=== PATIENT | female | born 1955 | race Caucasian/White ===

== ENCOUNTER 2020-06-07 13:09 | Outpatient (CLI) | payer MEDICARE, OTHER, SELFPAY | END 2020-06-07 13:10 | disposition home or self-care (01) | PROVIDERS: PCP Family Medicine; Visit Provider Surgery | DX: K40.30 Unilateral inguinal hernia, with obstruction, without gangrene, not specified as recurrent (principal); Z01.818 Encounter for other preprocedural examination | CPT/HCPCS: 36415; 86850; 86900; 86901 ==

== ENCOUNTER 2020-06-09 02:15 | Outpatient (CLI) | payer MEDICARE, OTHER, SELFPAY ==
[2020-06-09 19:52] LABS: SARS-CoV-2 RNA PCR Negative
== END 2020-06-09 02:16 | disposition home or self-care (01) ==
LOC: ANHCOVIDDT 02:16
PROVIDERS: PCP Family Medicine; Visit Provider Surgery
DX: Z01.812 Encounter for preprocedural laboratory examination (principal); Z20.828 Contact with and (suspected) exposure to other viral communicable diseases
CPT/HCPCS: 87635; C9803; U0003

== ENCOUNTER 2020-06-12 00:58 | Day surgery (SDC) | payer MEDICARE, OTHER, SELFPAY ==
[2020-06-06 15:25] VITALS: BMI 21.8
[2020-06-12] VITALS (10 sets, daily range): BP systolic 134–192; BP diastolic 55–89; PULSE 56–80; RESP 12–16; TEMP 36.2–36.4; O2SAT 93–100
--- NOTE | 2020-06-12 07:24 | WPDANESEPPF ---
Anes - Initial Pre Proc Eval Procedure: Operation Date: 06/12/20 09:30 Proposed Procedures p Robotic Assisted Left Inguinal Hernia Repair With Mesh - Courtney Yeung MD Date/Time: 06/12/20 07:24 Surgeon: Courtney Yeung MD Pre Op Diagnosis: Left Incarcerated Inguinal Hernia Patient Data Age: 65 Gender: F Height: 1.61 m Weight: 56.8 kg Allergies Allergy/AdvReac Type Severity Reaction Status Date / Time latex AdvReac Intermediate Ulcers,rash Verified 06/12/20 07:59 Home Medications Medication Instructions Recorded Confirmed Type No Home Medications 06/05/20 06/12/20 History Patient hx anesthesia problems: none Family hx anesthesia problems: none [facility] Past Medical History Medical History (Updated 06/12/20 @ 08:44 by Misbah Delgado DO) History of pancreatitis 03/2020 - resolved Surgical History Surgical History H/O right inguinal hernia repair x2 Knee arthropathy Both knees Family History Family History Mother Hypertension Cancer Social History Social History Smoking status: Never smoker Alcohol intake: never Substance use: never Living arrangements: with family Additional occupation/education comments: House Gender identity (if verbalized by the patient): Female Spiritual care concerns: No Anes - Eval Final PreProcedure Day of Procedure 06/12/20 07:24 Patient weight: normal Heart: regular rate and rhythm Lungs: clear to auscultation and normal air movement Airway: Mallampati scale class II Neurological: alert and oriented Last oral intake: >/= 8 hours ASA classification: II Emergent: no Anesthetic plan: proceed Anesthesia type and monitoring: general ETT and standard monitoring Informed Consent: The patient's anesthetic plan and its attendant risks and benefits were discussed with the patient/family/POA. Questions were solicited and answers provided to the satisfaction of the patient/family/POA.
[2020-06-12] MEDS: ACETAMINOPHEN 500 MG TABLET 1000 MG PO (08:06)
[2020-06-12] MEDS: LACTATED RINGERS 1,000 ML 30 ML IV CONT ×2 (08:17→10:55)
[2020-06-12] MEDS: KETOROLAC 15 MG/ML VIAL (*BKC) IV PUSH (08:20)
--- NOTE | 2020-06-12 08:54 | WPDHPUPDATE1 ---
History and Physical Update Update Date/Time: 06/12/20 08:54 History and Physical has been reviewed, including an updated exam of the patient. There are NO changes in the patient's condition. Risks, benefits, and alternatives have been discussed and questions answered. Patient agrees to proceed with procedure.
[2020-06-12] MEDS: ceFAZolin 2 GM/D5W 50 ML 2 GM/50 ML BAG IVPB (09:27)
--- NOTE | 2020-06-12 10:45 | PM.PROC ---
Procedure Note - Detailed Date of procedure: 06/12/20 Pre-op diagnosis: Left Incarcerated Inguinal Hernia Post-op diagnosis: same Procedure performed: robotic assisted left inguinal hernia repair Description of procedure: Patient was brought into the operating room and placed in the supine position. After adequate induction of general anesthesia, the patient was prepped and draped in normal sterile fashion. A time-out was then done to verify the patient's identity, as well as the procedure being performed. Began by making a 8 mm incision in the supraumbilical region, a Veress needle was then placed into the peritoneal cavity. CO2 gas was then insufflated and after adequate pneumoperitoneum was achieved, the Veress needle was removed. I then placed an 8 mm trocar through this incision. I then placed the endoscope through this trocar site and under direct visualization placed 2 further 8 mm ports in the right and left mid abdomen. The [employer] robot was then docked to the 3 trocar sites. I then scrubbed out and went to the robotic console. Upon examining the pelvis, it was noted that the patient had a incarcerated left inguinal hernia with preperitoneal fat. I was able to reduce the fat with gentle retraction out of the hernia. Once this was done, I began by making a preperitoneal flap approximately 6 cm superior to the defect. This flap was carried medially past the umbilical ligaments in laterally to the transversalis. It then began dissection of my medial compartment taking this down to the pubic tubercle. I then began the lateral dissection taking this down to the transversalis fascia. Once these compartments were achieved, I began dissection around the round ligament. It was noted at this point that the patient had a indirect hernia. Patient also had a large lipoma. Using careful dissection, was able to reduce the lipoma cord as well separate the indirect hernia off the round ligament. I then transected the round ligament with cautery. Once this was adequately done, I went ahead and placed a 15 x 10 piece of [employer] mesh into the abdominal cavity. The mesh was carefully positioned, centering the center of the mesh over the indirect defect. Once this was done, was very satisfied with our repair. I then closed the peritoneal flap with a running 2.0 V Lock suture. The abdomen was then desufflated, and all ports were removed. All incisions were then closed with the 4.0 monocryl suture. Dermabond was placed on each wound. The patient tolerated the procedure well, was extubated in the operating room postoperatively, and will now be transferred to the recovery room in stable condition. Implants: 15 x 10 progrip mesh Anesthesia: GETA Surgeon: Courtney Yeung MD Estimated blood loss (mL): 5 Drains: No Packing: No Pathology: none sent Complications: No immediate complications Condition: stable Disposition: PACU Findings: indirect LIH c incarcerated preperitoneal fat
[2020-06-12] MEDS: hydrALAZINE HCL 20 MG/ML VIAL 5 MG IV PUSH (11:37)
--- NOTE | 2020-06-12 14:18 | SUR.PHASEII ---
PT URINATED WITHOUT ISSUE AT 1239 PM
== END 2020-06-12 13:30 | disposition home or self-care (01) ==
PROVIDERS: PCP Family Medicine; Visit Provider Surgery
PROC: 8E0Y4CZ Robotic Assisted Procedure of Lower Extremity, Percutaneous Endoscopic Approach (ICD-10-PCS; CPT 49650; principal; 2020-06-12 09:30)
DX: K40.30 Unilateral inguinal hernia, with obstruction, without gangrene, not specified as recurrent (principal)
CPT/HCPCS: 49650; S2900; A9270; C1781; J0360; J0690; J1100; J1885; J2250; J2405; J2704; J2710; J3010; J7120

== ENCOUNTER 2023-04-10 08:11 | Outpatient (CLI) | payer MEDICARE, OTHER, SELFPAY ==
--- NOTE | ~2023-04-10 | US_ITS ---
US pelvic limited 04/10/2023 08:34 Indication: Urinary retention Procedure: High-resolution Limited ultrasound of the pelvis using transabdominal technique Comparison: No prior studies for comparison. Findings: Normal heterogeneous soft tissue in the pelvis. Bladder is unremarkable without focal bladd er wall abnormality. Prevoid volume in the bladder is 3 31 cc. No post void residual. No extraluminal fluid collections or masses. Impression: 1: Unremarkable pelvic ultrasound. Reviewed, dictated and finalized at location L. Impression: 1: Unremarkable pelvic ultrasound.
--- NOTE | ~2023-04-10 | MMUS_ITS ---
EXAMINATION: MM diagnostic carmelo RT w brea, US breast RT limited HISTORY: Reportedly abnormal right screening mammogram at [facility] TECHNIQUE: Additional 3-D tomosynthesis images of the right breast were performed and synthetic 2-D i mages were generated. CAD analysis was submitted and interpreted. High resolution upper outer quadran t and lower outer quadrant right breast ultrasound was performed. COMPARISON: None BREAST PARENCHYMAL COMPOSITION: There are scattered areas of fibroglandular density. FINDINGS: MAMMOGRAPHIC FINDINGS: No reproducible suspicious mass, architectural distortion, malignant calcification, skin thickening o r retraction of the right breast is detected. ULTRASOUND: No suspicious mass or shadowing, cyst or other significant finding is noted in the upper outer or low er outer quadrants of the right breast. IMPRESSION: 1. No mammographic evidence of right breast malignancy 2. Routine mammographic screening is recommended BI-RADS Category 1: Negative Reviewed, dictated and finalized at location A. IMPRESSION: 1. No mammographic evidence of right breast malignancy 2. Routine mammographic screening is recommended BI-RADS Category 1: Negative
== END 2023-04-10 08:12 | disposition home or self-care (01) ==
LOC: CHSIMG 08:13
PROVIDERS: PCP Family Medicine; Visit Provider Registered Nurse
DX: R92.8 Other abnormal and inconclusive findings on diagnostic imaging of breast (principal); R33.9 Retention of urine, unspecified
CPT/HCPCS: 76642; 76857; 77061; 77065; G0279